=== PATIENT | male | born 1945 | race Caucasian/White ===

== ENCOUNTER 2019-09-14 12:27 | Emergency (ER) | payer MEDICARE, OTHER ==
[~2019-09-14] VITALS: Ht 180.3 cm; Wt 92.3 kg
[~2019-09-14 12:27] MED LIST: ASPI-482 PO; ESOM20CA PO; INDO25CA21 PO; INDO25OR PO; INSU100I13 SQ; INSU100I17 SQ; INSU100V11 IJ; LEVO500T59 PO; LORA10CA PO; LORA10TA68 PO; METO100T5 PO; METO50TA4 PO; NEBI5TAB2 PO
[2019-09-14 12:39] VITALS: BP 151/70
--- NOTE | 2019-09-14 13:10 | RAD ---
ELBOW LEFT 3V History: Pain. Deformity. Technique: 3 views left elbow. Comparison: None. Findings: Significant posterior elbow soft tissue swelling. Normal alignment. No significant elbow joint effusion. No fracture. Olecranon enthesophyte. Impression: 1. No acute osseous abnormality. 2. Severe posterior elbow soft tissue swelling. Electronically signed by: Jorge L Klein DO (09/14/2019 1:07 PM) [id number]
--- NOTE | 2019-09-14 13:19 | PHYS DOC ---
Past History Past Medical History: Diabetes, GERD, Heart Disease, Hypertension, NC, Other Additional Past Medical Histor: ulcers Past Surgical History: Tonsillectomy, Other Additional Past Surgical Histo: 6 stents Smoking: Non-smoker Alcohol Use: None Drug Use: None Adult General Chief Complaint Chief Complaint: UPPER EXTREMITY INJURY [facility] HPI 74-year-old male presents with swollen left elbow. He fell 3 weeks ago on the ice and had some elbow and left shoulder pain. He will but the next day with bruising of the left upper arm. He still had full motion so he didn't worry about it. He did not seek care at that time. The bruising improved and he got better. He presents today because he started to have his left elbow swell up last night while he was watching the [email or web address]. When he woke up this morning, he had significant swelling over the olecranon. He denies any new fall or injury. He has been carrying boxes to the basement in the house he was moved into. The skin is not hot. He denies fever or chills. His primary care physician could not see him because his x-ray machine is not working. Patient denies any other concerns or complaints. Review of Systems Review of Systems Constitutional: Denies fever or chills [] Eyes: Denies change in visual acuity, redness, or eye pain [] HENT: Denies nasal congestion or sore throat [] Respiratory: Denies cough or shortness of breath [] Cardiovascular: No additional information not addressed in HPI [] GI: Denies abdominal pain, nausea, vomiting, bloody stools or diarrhea [] : Denies dysuria or hematuria [] Musculoskeletal: Left elbow swelling[] Integument: Denies rash or skin lesions [] Neurologic: Denies headache, focal weakness or sensory changes [] Endocrine: Denies polyuria or polydipsia [] All other systems were reviewed and found to be within normal limits, except as documented in this note. Allergies Allergies Allergies Coded Allergies Type Severity Reaction Last Updated Verified No Known Drug Allergies 03/11/14 No Physical Exam Physical Exam Constitutional: Well developed, well nourished, no acute distress, non-toxic appearance. [] HENT: Normocephalic, atraumatic, bilateral external ears normal, oropharynx moist, no oral exudates, nose normal. [] Eyes: PERRLA, EOMI, conjunctiva normal, no discharge. [] Neck: Normal range of motion, no tenderness, supple, no stridor. [] Cardiovascular:Heart rate regular rhythm, no murmur [] Lungs & Thorax: Bilateral breath sounds clear to auscultation [] Abdomen: Bowel sounds normal, soft, no tenderness, no masses, no pulsatile masses. [] Skin: Warm, dry, no erythema, no rash. [] Back: No tenderness, no CVA tenderness. [] Extremities: Severe swelling over the left olecranon, consistent with bursitis. Tenderness to touch. No erythema or warmth. No obvious deformity.[] Neurologic: Alert and oriented X 3, normal motor function, normal sensory function, no focal deficits noted. [] Psychologic: Affect normal, judgement normal, mood normal. [] Current Patient Data Vital Signs Vital Signs Date Time Temp Pulse Resp B/P (MAP) Pulse Ox O2 Delivery O2 Flow Rate FiO2 09/14/19 12:39 50 18 151/70 (97) 100 EKG EKG [] Radiology/Procedures Radiology/Procedures [] Impressions: ELBOW LEFT 3V History: Pain. Deformity. Technique: 3 views left elbow. Comparison: None. Findings: Significant posterior elbow soft tissue swelling. Normal alignment. No significant elbow joint effusion. No fracture. Olecranon enthesophyte. Impression: 1. No acute osseous abnormality. 2. Severe posterior elbow soft tissue swelling. Electronically signed by: Micaela Hewitt DO (09/14/2019 1:07 PM) [id number] DICTATED AND SIGNED BY: MICAELA HEWITT DO DATE: 09/14/19 [id number] CC: TROY THACKER DO; HELEN AMRTELL MD ~ Course & Med Decision Making Course & Med Decision Making Pertinent Labs and Imaging studies reviewed. (See chart for details) The patient's x-rays negative for fracture. He appears to have an olecranon bu rsitis. I have advised compression therapy in discussing having it drained by his primary care physician or orthopedics. He is stable for discharge at this time. [] Dragon Disclaimer Dragon Disclaimer This electronic medical record was generated, in whole or in part, using a voice recognition dictation system. Departure Departure: Impression: Primary Impression: Olecranon bursitis of left elbow Disposition: 01 HOME, SELF-CARE Condition: STABLE Referrals: HELEN MARTELL MD (PCP) Patient Instructions: Olecranon Bursitis with [facility] TROY THACKER DO Sep 14, 2019 13:19
== END 2019-09-14 13:33 | disposition home or self-care (01) ==
LOC: ER 12:27
DX: M70.22 Olecranon bursitis, left elbow (principal); E11.9 Type 2 diabetes mellitus without complications; K21.9 Gastro-esophageal reflux disease without esophagitis; I10 Essential (primary) hypertension; I25.2 Old myocardial infarction; Z90.89 Acquired absence of other organs; Y93.89 Activity, other specified
CPT/HCPCS: 73080; 99284

== ENCOUNTER → 2021-07-14 | Day surgery (SDC) | payer MEDICARE, OTHER ==
[~2021-07-14] MED LIST changes: +ASPI-630 PO; +PANT40TA3 PO; +carafate PO; +tresiba
[2021-07-14 13:16] VITALS: BP 136/83
[2021-07-14 13:57] LABS: ALBUMIN 2.5 g/dL (3.4-5.0); DIRECT BILIRUBIN 0.2 mg/dL (0.0-0.2); TOTAL BILIRUBIN 0.6 mg/dL (0.2-1.0); TOTAL PROTEIN 7.9 g/dL (6.4-8.2)
--- NOTE | 2021-07-14 16:46 | PDOC4 ---
Operative Report DATE 07/14/2021 at 12.45pm Preop Diagnosis Ascites and suspected cirrhosis of the liver Post-op Diagnosis Ascites, s/p diagnostic abdominal paracentesis. Operation Performed Percutaneous diagnostic abdominal paracentesis. Surgeon Lalo Tinoco mD Senior Lead Developer None Anesthesiologist None ANESTHESIA PROPOSED: OTHER Blood Loss None IV Fluid Normal Saline KVO Specimen Ascites fluid for cell count, differential, albumin, cytology Complications None COURSE Allergies Coded Allergies Type Severity Reaction Last Updated Verified No Known Drug Allergies 07/14/21 No Laboratory Tests Test 07/14/21 13:00 Total Bilirubin 0.6 mg/dL (0.2-1.0) Direct Bilirubin 0.2 mg/dL (0.0-0.2) Aspartate Amino Transf (AST/SGOT) 28 U/L (15-37) Alanine Aminotransferase (ALT/SGPT) 20 U/L (16-63) Alkaline Phosphatase 91 U/L (46-116) Total Protein 7.9 g/dL (6.4-8.2) Albumin 2.5 g/dL (3.4-5.0) Orders Procedure Category Date Status Time Body Fluid Albumin LAB 07/14/21 In Process 12:47 Miscellaneous Send Out LAB 07/14/21 In Process 12:47 Hepatic Panel LAB 07/14/21 Complete 13:00 Vital Signs Date Time Temp Pulse Resp B/P (MAP) Pulse Ox O2 Delivery O2 Flow Rate FiO2 07/14/21 13:16 70 16 136/83 (100) 96 Room Air 07/14/21 11:50 98.5 Informed consent obtained. A site for abdominal paracentesis was selected. Site was prepared with anti-septic. Using steile precautions a 22 gauge needle was used to collect 40cc of yomi colored fluid from paracentesis with one attempt. Sterile gauge was used to seal the paracentesis micro-puncture. Patient remained stable and without complications. Post-procedure observation was initiated. Ultimately discharged home in stable condition. ZACK TRAN MD Jul 14, 2021 16:45
== END | disposition home or self-care (01) ==
LOC: SURG 11:20
PROVIDERS: ATTEND Internal Medicine Gastroenterology
DX: R18.8 Other ascites (principal); I25.10 Atherosclerotic heart disease of native coronary artery without angina pectoris; M10.9 Gout, unspecified; K21.9 Gastro-esophageal reflux disease without esophagitis; Z79.82 Long term (current) use of aspirin; Z79.4 Long term (current) use of insulin
CPT/HCPCS: 36415; 49082; 80076; 82042

== ENCOUNTER → 2021-07-19 | Outpatient (CLI) | payer MEDICARE, OTHER ==
[2021-07-14 13:16] VITALS: BP 136/83
--- NOTE | 2021-07-19 15:37 | RAD ---
Hepatic duplex ultrasound exam 07/19/2021 INDICATION: Cirrhosis COMPARISON STUDY: None Discussion: Ultrasound evaluation of the hepatic vasculature was performed. Static images are submitt ed to PACS. Liver is poorly visualized. Ascites noted in the right upper quadrant. The liver is top normal in siz e measuring approximately 17 cm longitudinally. Portal venous flow is in the normal direction. Portal venous velocity appears to be within normal limits. The right left portal veins. Be patent. The hepa tic veins. Be patent. The splenic vein is patent. IMPRESSION: 1. Portal vein appears grossly patent with flow in the normal direction. 2. Ascites Electronically signed by: Wesley Artis MD (07/19/2021 3:35 PM) [id number]
--- NOTE | 2021-07-19 16:44 | RAD ---
Limited ultrasound of the abdomen 07/19/2021 HISTORY: Abdominal distention. TECHNIQUE: A real-time ultrasound examination of all 4 quadrants of the abdomen was performed. Multip le images were obtained. FINDINGS: A large amount of ascites is seen throughout the abdomen. The largest amount of ascites is seen within the right lower quadrant of the abdomen. The largest pocket measures 12.9 cm in depth. IMPRESSION: Large amount of ascites. Electronically signed by: Miguel Dubois MD (07/19/2021 4:42 PM) [id number]
== END ==
LOC: US 08:37
PROVIDERS: ATTEND Internal Medicine Gastroenterology
DX: R18.8 Other ascites (principal); R14.0 Abdominal distension (gaseous); K74.60 Unspecified cirrhosis of liver
CPT/HCPCS: 76705; 93976